=== PATIENT | female | born 1995 | race African-American/Black ===

== ENCOUNTER 2019-04-19 10:45 | Emergency (ER) | payer SELFPAY ==
[2019-04-19 12:55] LABS: Urine Blood NEGATIVE (NEG); Urine Glucose NEGATIVE (NEG); Urine Protein NEGATIVE (NEG); Urine Specific Gravity 1.025 (1.005-1.030)
--- NOTE | 2019-04-19 13:39 | RAD REPORT ---
EXAM DESCRIPTION: CT - Head Brain Wo Cont - 04/19/2019 1:32 pm CLINICAL HISTORY: Dizziness;Headache;Numbness COMPARISON: No comparisons TECHNIQUE: All CT scans are performed using dose optimization technique as appropriate and may inclu de automated exposure control or mA/KV adjustment according to patient size. FINDINGS: No intracranial hemorrhage, hydrocephalus or extra-axial fluid collection.No areas of brai n edema or evidence of midline shift. The paranasal sinuses and mastoids are clear. The calvarium is intact. IMPRESSION: No acute intracranial abnormality.
[2019-04-19] MEDS ORDERED: METOCLOPRAMIDE 10 MG/2mL INJ ONE (14:04)
[2019-04-19] MEDS ORDERED: DIPHENHYDRAMINE 50 MG/ML VIAL ONE (14:04)
[2019-04-19] MEDS ORDERED: NA CHLORIDE 0.9% 100 ML IV ONE (14:04)
[2019-04-19 14:10] LABS: Absolute Lymphocytes (CBC) 2.2 K/uL (0.7-4.9); Basophils % 0.4 % (0-1.3); Hematocrit 34.2 % (36.0-45.0); Lymphocytes % 44.1 % (15.3-44.8); MPV 8.4 fL (7.6-11.3); RBC Red Blood Cell Count 3.73 M/uL (3.86-4.86)
[2019-04-19 14:22] LABS: BUN Blood Urea Nitrogen 7 mg/dL (7-18); Bicarbonate 28 mmol/L (21-32); Glucose Level 87 mg/dL (74-106); Potassium 3.7 mmol/L (3.5-5.1); Sodium Level 138 mmol/L (136-145)
--- NOTE | 2019-04-19 14:55 | EDPHYS ---
Physician Documentation [facility] Name: Sivakumar Mayo Age: 23 yrs Sex: Female : 1995 Arrival Date: 04/19/2019 Time: 10:[address] Private MD: ED Physician Santiago Barbosa HPI: 04/19 14:09 This 23 yrs old Black Female presents to ER via Ambulatory with complaints of jr8 Dizziness, Headache, Nausea. 14:09 Onset: The symptoms/episode began/occurred acutely, today. Modifying factors: The jr8 symptoms are alleviated by nothing, the symptoms are aggravated by nothing. Associated signs and symptoms: The patient has no apparent associated signs or symptoms. Severity of symptoms: At their worst the symptoms were mild in the emergency department the symptoms are unchanged. Patient's baseline: Neuro: alert and fully oriented, Motor: no deficits, Ambulation: walks without assistance, Speech: normal. The patient has not experienced similar symptoms in the past. The patient has not recently seen a physician. Stated that her hands and feet are numb and tingling on/off. Has had headache and dizziness with nausea . 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 - Coronavirus screen:: The patient has NOT traveled to [place], [place], or [place] in the past 14 days. Proceed with normal triage process as indicated. - Social history:: Smoking status: Patient denies any tobacco usage or history of. - Ebola Screening: : Patient negative for fever greater than or equal to 101.5 degrees Fahrenheit, and additional compatible Ebola Virus Disease symptoms Patient denies exposure to infectious person Patient denies travel to an Ebola-affected area in the 21 days before illness onset No symptoms or risks identified at this time. ROS: 14:09 Eyes: Negative for injury, pain, redness, and discharge, ENT: Negative for injury, jr8 pain, and discharge, Neck: Negative for injury, pain, and swelling, Cardiovascular: Negative for chest pain, palpitations, and edema, Respiratory: Negative for shortness of breath, cough, wheezing, and pleuritic chest pain, Back: Negative for injury and pain, MS/Extremity: Negative for injury and deformity, Skin: Negative for injury, rash, and discoloration. 14:09 Abdomen/GI: Positive for nausea, Negative for abdominal pain, vomiting, diarrhea, constipation, abdominal cramps, abdominal distension. 14:09 Neuro: Positive for dizziness, headache, numbness, tingling. Exam: 14:09 Eyes: Pupils equal round and reactive to light, extra-ocular motions intact. Lids and jr8 lashes normal. Conjunctiva and sclera are non-icteric and not injected. Cornea within normal limits. Periorbital areas with no swelling, redness, or edema. ENT: Nares patent. No nasal discharge, no septal abnormalities noted. Tympanic membranes are normal and external auditory canals are clear. Oropharynx with no redness, swelling, or masses, exudates, or evidence of obstruction, uvula midline. Mucous membranes moist. Neck: Trachea midline, no thyromegaly or masses palpated, and no cervical lymphadenopathy. Supple, full range of motion without nuchal rigidity, or vertebral point tenderness. No Meningismus. Cardiovascular: Regular rate and rhythm with a normal S1 and S2. No gallops, murmurs, or rubs. Normal PMI, no JVD. No pulse deficits. Respiratory: Lungs have equal breath sounds bilaterally, clear to auscultation and percussion. No rales, rhonchi or wheezes noted. No increased work of breathing, no retractions or nasal flaring. Abdomen/GI: Soft, non-tender, with normal bowel sounds. No distension or tympany. No guarding or rebound. No evidence of tenderness throughout. Back: No spinal tenderness. No costovertebral tenderness. Full range of motion. Skin: Warm, dry with normal turgor. Normal color with no rashes, no lesions, and no evidence of cellulitis. MS/ Extremity: Pulses equal, no cyanosis. Neurovascular intact. Full, normal range of motion. Neuro: Awake and alert, GCS 15, oriented to person, place, time, and situation. Cranial nerves II-XII grossly intact. Motor strength 5/5 in all extremities. Sensory grossly intact. Cerebellar exam normal. Normal gait. Vital Signs: 11:01 BP 122 / 84; Pulse 74; Resp 16; Temp 98.7; Pulse Ox 100% on R/A; Weight 58.51 kg; iw Height 5 ft. 0 in. (152.40 cm); Pain 7/10; 12:31 BP 126 / 81; Pulse 86; Resp 15; Pulse Ox 100% on R/A; mh5 14:00 BP 129 / 77; Pulse 72; Resp 14; Temp 98.4; Pulse Ox 100% on R/A; Pain 4/10; ls4 15:14 BP 121 / 78; Pulse 74; Resp 14; Temp 98.3; Pulse Ox 100% on R/A; Pain 4/10; ls4 11:01 Body Mass Index 25.19 (58.51 kg, 152.40 cm) iw MDM: 12:52 Patient medically screened. [facility] 14:53 Data reviewed: vital signs, nurses notes, lab test result(s), radiologic studies, CT jr8 scan. Data interpreted: Pulse oximetry: on room air is 100 %. Interpretation: normal. Counseling: I had a detailed discussion with the patient and/or guardian regarding: the historical points, exam findings, and any diagnostic results supporting the discharge/admit diagnosis, lab results, radiology results, the need for outpatient follow up, a family practitioner, to return to the emergency department if symptoms worsen or persist or if there are any questions or concerns that arise at home. 04/19 12:25 Order name: Urine Dipstick--Ancillary (enter results); Complete Time: 12:56 04/19 12:25 Order name: Urine --Ancillary (enter results); Complete Time: 12:56 04/19 13:08 Order name: CT Head Brain wo Cont; Complete Time: 13:46 04/19 13:08 Order name: CBC with Diff [facility] 04/19 13:08 Order name: Basic Metabolic Panel; Complete Time: 14:53 04/19 14:17 Order name: Manual Differential EDMS 04/19 13:08 Order name: IV; Complete Time: 14:41 [facility] 04/19 13:43 Order name: Labs - recollect needed; Complete Time: 13:59 bd Administered Medications: 13:50 Drug: Reglan 10 mg Route: IVP; Site: left antecubital; ls4 14:30 Follow up: Response: No adverse reaction; Marked relief of symptoms ls4 13:50 Drug: Benadryl 12.5 mg Route: IVP; Site: left subclavian; ls4 14:30 Follow up: Response: No adverse reaction; Pain is decreased ls4 Disposition: 16:46 Co-signature as Attending Physician, Santiago Barbosa MD I agree with the assessment and baylee plan of care. Disposition: 04/19/19 14:54 Discharged to Home. Impression: Migraine, Paresthesia of skin. - Condition is Stable. - Discharge Instructions: Migraine Headache, Paresthesia. - Medication Reconciliation Form, Thank You Letter, Antibiotic Education, Prescription Opioid Use form. - Follow up: Jeyson Krishnan MD; When: 5 - 6 days; Reason: Recheck today's complaints, Continuance of care, Re-evaluation by your physician. - Problem is new. - Symptoms have improved. Signatures: Dispatcher [employer] EDMS Lissy Ferreira Corey, MD MD cha Williams, Irene RN Larry Fuchs PA PA jr8 Reyna Davis RN RN ls4 Corrections: (The following items were deleted from the chart) 15:24 14:54 04/19/2019 14:54 Discharged to Home. Impression: Migraine; Paresthesia of skin. ls4 Condition is Stable. Forms are Medication Reconciliation Form, Thank You Letter, Antibiotic Education, Prescription Opioid Use. Follow up: Jeyson Krishnan; When: 5 - 6 days; Reason: Recheck today's complaints, Continuance of care, Re-evaluation by your physician. Problem is new. Symptoms have improved. jr8
--- NOTE | 2019-04-19 14:55 | ER ---
Nurse's Notes [facility] Name: Sivakumar Mayo Age: 23 yrs Sex: Female : 1995 Arrival Date: 04/19/2019 Time: 10:[address] Private MD: Diagnosis: Migraine;Paresthesia of skin Presentation: 04/19 10:58 Presenting complaint: Patient states: feels weak, nauseated, feels like she's going to pass out, headache X 10 days, denies fever but has been sweating. Transition of care: patient was not received from another setting of care. Onset of symptoms was April 09, 2019. Risk Assessment: Do you want to hurt yourself or someone else? Patient reports no desire to harm self or others. Initial Sepsis Screen: Does the patient meet any 2 criteria? No. Patient's initial sepsis screen is negative. Does the patient have a suspected source of infection? No. Patient's initial sepsis screen is negative. Care prior to arrival: None. 10:58 Method Of Arrival: Ambulatory 10:58 Acuity: SIMONE 3 Triage Assessment: 12:45 Headache History: The patient has had previous headaches and this one is similar to iw previous episodes. General: Appears in no apparent distress. General: Behavior is calm, cooperative. Pain: Also complains of no other associated symptoms. Pain: Pain currently is 8 out of 10 on a pain scale. 12:45 Pain: Pain began 1 day ago. 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 - Coronavirus screen:: The patient has NOT traveled to [place], [place], or [place] in the past 14 days. Proceed with normal triage process as indicated. - Social history:: Smoking status: Patient denies any tobacco usage or history of. - Ebola Screening: : Patient negative for fever greater than or equal to 101.5 degrees Fahrenheit, and additional compatible Ebola Virus Disease symptoms Patient denies exposure to infectious person Patient denies travel to an Ebola-affected area in the 21 days before illness onset No symptoms or risks identified at this time. Screenin:40 Abuse screen: Denies threats or abuse. Denies injuries from another. Nutritional iw screening: No deficits noted. Tuberculosis screening: No symptoms or risk factors identified. Fall Risk None identified. Assessment: 12:39 General: Appears in no apparent distress. Behavior is calm, cooperative. Pain: iw Complains of pain in head. Neuro: Level of Consciousness is awake, alert, obeys commands, Oriented to person, place, time, situation. Cardiovascular: Patient's skin is warm and dry. Respiratory: Airway is patent Respiratory effort is even, unlabored. Derm: Skin is intact, is healthy with good turgor. Musculoskeletal: Range of motion: intact in all extremities. Vital Signs: 11:01 BP 122 / 84; Pulse 74; Resp 16; Temp 98.7; Pulse Ox 100% on R/A; Weight 58.51 kg; iw Height 5 ft. 0 in. (152.40 cm); Pain 7/10; 12:31 BP 126 / 81; Pulse 86; Resp 15; Pulse Ox 100% on R/A; mh5 14:00 BP 129 / 77; Pulse 72; Resp 14; Temp 98.4; Pulse Ox 100% on R/A; Pain 4/10; ls4 15:14 BP 121 / 78; Pulse 74; Resp 14; Temp 98.3; Pulse Ox 100% on R/A; Pain 4/10; ls4 11:01 Body Mass Index 25.19 (58.51 kg, 152.40 cm) ED Course: 10:49 Patient arrived in ED. mr 10:59 Triage completed. iw 11:01 Arm band placed on. iw 12:15 Larry Cervantes PA is PHCP. jr8 12:15 Santiago Barbosa MD is Attending Physician. jr8 12:27 Urine collected: clean catch specimen, clear. [facility] 12:30 Patient has correct armband on for positive identification. Bed in low position. Call [facility] light in reach. Pulse ox on. NIBP on. 12:30 Urine --Ancillary (enter results) Sent. [facility] 12:30 Urine Dipstick--Ancillary (enter results) Sent. [facility] 13:17 Alida Castellon, TONY is Primary Nurse. iw 13:18 Initial lab(s) drawn, by me, sent to lab. Inserted saline lock: 18 gauge in left tm3 antecubital area, using aseptic technique. 13:32 CT Head Brain wo Cont In Process Unspecified. EDMS 14:54 Jeyson Krishnan MD is Referral Physician. jr8 15:23 No provider procedures requiring assistance completed. IV discontinued, intact, iw bleeding controlled, No redness/swelling at site. Pressure dressing applied. Administered Medications: 13:50 Drug: Reglan 10 mg Route: IVP; Site: left antecubital; ls4 14:30 Follow up: Response: No adverse reaction; Marked relief of symptoms ls4 13:50 Drug: Benadryl 12.5 mg Route: IVP; Site: left subclavian; ls4 14:30 Follow up: Response: No adverse reaction; Pain is decreased ls4 Outcome: 14:54 Discharge ordered by . jr8 15:23 Discharged to home ambulatory. iw 15:23 Condition: good 15:23 Discharge instructions given to patient, Instructed on discharge instructions, follow up and referral plans. Demonstrated understanding of instructions, follow-up care. 15:24 Patient left the ED. ls4 Signatures: Dispatcher [employer] EDMS Tal Khan Mary mr Alida Castellon, RN RN Larry Cervantes PA PA jr8 Anuja Curtis Reyna Gonzalez RN RN ls4
[2019-04-19 15:34] VITALS: O2SAT 100
[2019-04-19 15:36] LABS: Anisocytosis 1+; Blood Morphology Comment NOTED (NOT SEEN); Platelet Estimate ADEQ; Poikilocytosis 1+
[2019-04-19 15:38] VITALS: BP 121/78; TEMP 98.3
== END 2019-04-19 15:24 | disposition home or self-care (01) ==
LOC: ER 10:45
DX: G43.909 Migraine, unspecified, not intractable, without status migrainosus (principal); R20.2 Paresthesia of skin
CPT/HCPCS: 36415; 70450; 80048; 81003; 81025; 85025; 96374; 96375; 99284; J1200; J2765

== ENCOUNTER 2019-06-13 11:14 | Emergency (ER) | payer OTHER, SELFPAY ==
--- NOTE | 2019-06-13 12:18 | RAD REPORT ---
EXAM DESCRIPTION: Karishma Single View06/13/2019 12:13 pm CLINICAL HISTORY: Cough COMPARISON: none FINDINGS: The lungs appear clear of acute infiltrate. The heart is normal size IMPRESSION: No acute abnormalities displayed
--- NOTE | 2019-06-13 12:20 | ER ---
Nurse's Notes [facility] Name: Sivakumar Mayo Age: 24 yrs Sex: Female : 1995 Arrival Date: 06/13/2019 Time: 11:19 Bed 14 Private MD: Diagnosis: Cough;Acute upper respiratory infection, unspecified Presentation: 06/12 11:29 Chief complaint: Patient states: Cough, congestion, chills, body aches for about a ca1 week. Reports diarrhea. Denies N/V. Coronavirus screen: Patient reports a subjective fever or greater than 100.4F, or cough, or shortness of breath, or difficulty breathing. Patient denies travel on a cruise ship or to a country the [facility] currently lists as an affected area. Patient denies contact with known and/or suspected case of COVID-19. Ebola Screen: Patient negative for fever greater than or equal to 101.5 degrees Fahrenheit, and additional compatible Ebola Virus Disease symptoms Patient denies exposure to infectious person. Patient denies travel to an Ebola-affected area in the 21 days before illness onset. No symptoms or risks identified at this time. Initial Sepsis Screen: Does the patient meet any 2 criteria? No. Patient's initial sepsis screen is negative. Does the patient have a suspected source of infection? No. Patient's initial sepsis screen is negative. Risk Assessment: Do you want to hurt yourself or someone else? Patient reports no desire to harm self or others. Onset of symptoms was June 13, 2019. 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 - Social history:: Smoking status: Patient denies any tobacco usage or history of. - Family history:: not pertinent. - Hospitalizations: : No recent hospitalization is reported. Screenin:47 Abuse screen: Denies threats or abuse. Denies injuries from another. Nutritional ph screening: No deficits noted. Tuberculosis screening: No symptoms or risk factors identified. Fall Risk None identified. Assessment: 12:45 General: Appears in no apparent distress. comfortable, slender, well groomed, Behavior ph is calm, cooperative, appropriate for age, Reports chills for >3 days. Pain: Complains of pain in "body aches". Neuro: Level of Consciousness is awake, alert, obeys commands, Oriented to person, place, time, situation. Cardiovascular: Capillary refill < 3 seconds in bilateral fingers Patient's skin is warm and dry. Respiratory: Reports shortness of breath on exertion cough that is Airway is patent Respiratory effort is even, unlabored, Breath sounds are clear bilaterally. GI: Reports diarrhea, Patient currently denies abdominal pain, nausea, vomiting. Derm: Skin is intact, is healthy with good turgor, Skin is pink, warm \\T\\ dry. Musculoskeletal: Circulation, motion, and sensation intact. Range of motion: intact in all extremities. Vital Signs: 11:29 BP 112 / 72; Pulse 84; Resp 17 S; Temp 98.1(TE); Pulse Ox 100% on R/A; Weight 58.97 kg ca1 (R); Height 5 ft. (152.40 cm) (R); Pain 7/10; 12:51 BP 118 / 78; Pulse 81; Resp 18; Temp 97.9; Pulse Ox 99% on R/A; ph 11:29 Body Mass Index 25.39 (58.97 kg, 152.40 cm) ca1 ED Course: 11:19 Patient arrived in ED. mr 11:31 Triage completed. ca1 11:32 Arm band placed on left wrist. ca1 11:34 Lee Galvan MD is Attending Physician. rn 11:37 Ana Dawkins RN is Primary Nurse. ph 11:50 Flu and/or RSV swab sent to lab. Strep swab sent to lab. X-ray(s) taken. Patient jp3 maintains SpO2 saturation greater than 95% on room air. 11:51 Verbal reassurance given. jp3 11:51 Strep Sent. jp3 11:51 Flu Sent. jp3 12:14 XRAY Chest (1 view) In Process Unspecified. EDMS 12:48 Patient has correct armband on for positive identification. Bed in low position. Call ph light in reach. Side rails up X 1. Pulse ox on. NIBP on. Door closed. Noise minimized. 12:49 No provider procedures requiring assistance completed. Patient did not have IV access ph during this emergency room visit. Administered Medications: No medications were administered Outcome: 12:18 Discharge ordered by . rn 12:50 Discharged to home ambulatory. ph 12:50 Condition: good 12:50 Discharge instructions given to patient, Instructed on discharge instructions, follow up and referral plans. medication usage, Demonstrated understanding of instructions, follow-up care. 12:52 Patient left the ED. ph Signatures: Dispatcher [employer] PRIYANKAEulalia TorresLee MD MD rn Ana Dawkins RN RN ph Ricky Quiros 3 Emma Barker RN RN ca1 Corrections: (The following items were deleted from the chart) 11:31 11:29 Chief complaint: Patient states: Cough, congestion, chills for about a week. ca1 Reports diarrhea. Denies N/V ca1
--- NOTE | 2019-06-13 12:21 | EDPHYS ---
Physician Documentation [facility] Name: Sivakumar Mayo Age: 24 yrs Sex: Female : 1995 Arrival Date: 06/13/2019 Time: 11:19 Bed 14 Private MD: ED Physician Lee Galvan HPI: 06/12 11:41 This 24 yrs old Black Female presents to ER via Ambulatory with complaints of Cough, rn Breathing Difficulty, Fatigue. 11:41 The patient or guardian reports cough, that is intermittent, described as mild, with no rn sputum. Onset: The symptoms/episode began/occurred 1 week(s) ago. Severity of symptoms: At their worst the symptoms were mild, in the emergency department the symptoms are unchanged. Modifying factors: The symptoms are alleviated by nothing, the symptoms are aggravated by nothing. Associated signs and symptoms: Pertinent positives: rhinorrhea, sore throat, Pertinent negatives: fever. The patient has experienced similar episodes in the past. Reports cough, congestion, sore throat, for 1 week, non-productive, reports not better or worse, no hemoptysis. . 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 - Social history:: Smoking status: Patient denies any tobacco usage or history of. - Family history:: not pertinent. - Hospitalizations: : No recent hospitalization is reported. ROS: 11:41 Constitutional: Negative for fever, chills, and weight loss, Eyes: Negative for injury, rn pain, redness, and discharge, Neck: Negative for injury, pain, and swelling, Cardiovascular: Negative for chest pain, palpitations, and edema, Respiratory: + cough Abdomen/GI: Negative for abdominal pain, nausea, vomiting, + diarrhea MS/Extremity: Negative for injury and deformity, Skin: Negative for injury, rash, and discoloration, Neuro: Negative for headache, numbness, tingling, and seizure. Exam: 11:41 Constitutional: This is a well developed, well nourished patient who is awake, alert, rn and in no acute distress. Head/Face: Normocephalic, atraumatic. Eyes: Pupils equal round and reactive to light, extra-ocular motions intact. Lids and lashes normal. Conjunctiva and sclera are non-icteric and not injected. Cornea within normal limits. Periorbital areas with no swelling, redness, or edema. Neck: + non-tender cervical LAD Cardiovascular: Regular rate and rhythm. No pulse deficits. Respiratory: Lungs have equal breath sounds bilaterally, clear to auscultation. No increased work of breathing, no retractions or nasal flaring. MS/ Extremity: Pulses equal, no cyanosis. Neurovascular intact. Full, normal range of motion. Equal circumference. Neuro: Awake and alert, GCS 15 Vital Signs: 11:29 BP 112 / 72; Pulse 84; Resp 17 S; Temp 98.1(TE); Pulse Ox 100% on R/A; Weight 58.97 kg ca1 (R); Height 5 ft. (152.40 cm) (R); Pain 7/10; 12:51 BP 118 / 78; Pulse 81; Resp 18; Temp 97.9; Pulse Ox 99% on R/A; ph 11:29 Body Mass Index 25.39 (58.97 kg, 152.40 cm) ca1 MDM: 11:34 Patient medically screened. rn 12:16 Differential Diagnosis: Bronchitis Influenza Upper Respiratory Infection Viral Syndrome rn Pneumonia. Data reviewed: vital signs, nurses notes, lab test result(s), radiologic studies, plain films, and as a result, I will discharge patient. Test interpretation: by ED physician or midlevel provider: plain radiologic studies, CXR neg for acute pneumonia or infiltrate. Counseling: I had a detailed discussion with the patient and/or guardian regarding: the historical points, exam findings, and any diagnostic results supporting the discharge/admit diagnosis, lab results, radiology results, the need for outpatient follow up, to return to the emergency department if symptoms worsen or persist or if there are any questions or concerns that arise at home. Special discussion: I discussed with the patient/guardian in detail that at this point there is no indication for admission to the hospital. It is understood, however, that if the symptoms persist or worsen the patient needs to return immediately for re-evaluation. ED course: No indication for abx at this point, flu/strep neg, no oxygen requirement. . 06/12 11:40 Order name: Flu; Complete Time: 12:16 rn 06/12 11:40 Order name: Strep; Complete Time: 12:16 rn 06/12 11:40 Order name: XRAY Chest (1 view); Complete Time: 12:41 rn 06/12 12:10 Order name: Throat Culture EDMS Administered Medications: No medications were administered Disposition: 06/13/19 12:18 Discharged to Home. Impression: Cough, Acute upper respiratory infection, unspecified. - Condition is Stable. - Discharge Instructions: Upper Respiratory Infection, Adult, Viral Respiratory Infection, Cough, Adult. - Medication Reconciliation Form, Thank You Letter, Antibiotic Education, Prescription Opioid Use, Work release form form. - Follow up: Private Physician; When: As needed; Reason: Recheck today's complaints, Re-evaluation by your physician. - Problem is new. - Symptoms are unchanged. Signatures: Dispatcher [employer] EDMS Lee Galvan MD MD rn Hall, Patricia, RN RN Emma Barker RN RN [facility] Corrections: (The following items were deleted from the chart) 12:18 12:18 06/13/2019 12:18 Discharged to Home. Impression: Cough. Condition is Stable. rn Forms are Medication Reconciliation Form, Thank You Letter, Antibiotic Education, Prescription Opioid Use. Follow up: Private Physician; When: As needed; Reason: Recheck today's complaints, Re-evaluation by your physician. Problem is new. Symptoms are unchanged. rn 12:52 12:18 06/13/2019 12:18 Discharged to Home. Impression: Cough; Acute upper respiratory ph infection, unspecified. Condition is Stable. Forms are Medication Reconciliation Form, Thank You Letter, Antibiotic Education, Prescription Opioid Use. Follow up: Private Physician; When: As needed; Reason: Recheck today's complaints, Re-evaluation by your physician. Problem is new. Symptoms are unchanged. rn
[2019-06-13 13:01] VITALS: BP 118/78; TEMP 97.9; O2SAT 99
== END 2019-06-13 12:52 | disposition home or self-care (01) ==
LOC: ER 11:14
DX: J06.9 Acute upper respiratory infection, unspecified (principal)
CPT/HCPCS: 71045; 87070; 87081; 87804; 99284

== ENCOUNTER 2019-06-29 15:24 | Emergency (ER) | payer OTHER ==
[2019-06-29 17:02] VITALS: BP 131/75; TEMP 99.7; O2SAT 98
== END 2019-06-29 16:46 | disposition home or self-care (01) ==
LOC: ER 15:24
DX: H66.91 Otitis media, unspecified, right ear (principal); J02.9 Acute pharyngitis, unspecified
CPT/HCPCS: 87070; 87081; 99283

== ENCOUNTER 2019-07-02 18:27 | Emergency (ER) | payer OTHER ==
[2019-07-02] MEDS ORDERED: dexAMETHasone 10 MG/ML VIAL ONE (20:08)
[2019-07-02] MEDS ORDERED: IBUPROFEN 200 MG TAB PO ONE (20:09)
[2019-07-02] MEDS ORDERED: ONDANSETRON 4 MG/2 ML VIAL ONE (20:09)
[2019-07-02] MEDS ORDERED: CEFTRIAXONE/SWI 1gm 1 GM/10 ML SYR ONE (20:09)
[2019-07-02] MEDS ORDERED: NA CHLORIDE 0.9% 1,000 ML ONE (20:09)
[2019-07-02] MEDS ORDERED: IBUPROFEN 400 MG TAB ONE (20:09)
[2019-07-02] MEDS ORDERED: CLINDAMYCIN 900MG/D5W 900 MG/50 ML IVPB IV ONE (20:09)
[2019-07-02 20:15] LABS: Urine Blood NEGATIVE (NEG); Urine Glucose NEGATIVE (NEG); Urine Protein 2+ (NEG); Urine Specific Gravity 1.025 (1.005-1.030)
[2019-07-02 20:25] LABS: Absolute Lymphocytes (CBC) 1.3 K/uL (0.7-4.9); Basophils % 0.1 % (0-1.3); Hematocrit 35.3 % (36.0-45.0); MPV 8.7 fL (7.6-11.3); RBC Red Blood Cell Count 3.82 M/uL (3.86-4.86)
[2019-07-02 20:27] LABS: ALT/SGPT 12 U/L (12-78); AST/SGOT 16 U/L (15-37); Albumin 4.1 g/dL (3.4-5.0); Alkaline Phosphatase 68 U/L (45-117); BUN Blood Urea Nitrogen 5 mg/dL (7-18); Bicarbonate 27 mmol/L (21-32); Bilirubin Total 0.6 mg/dL (0.2-1.0); Glucose Level 88 mg/dL (74-106); Potassium 3.6 mmol/L (3.5-5.1); Protein, Total 8.8 g/dL (6.4-8.2); Sodium Level 143 mmol/L (136-145)
[2019-07-02] MEDS ORDERED: MORPHINE 2 MG/ML SYR ONE (20:54)
--- NOTE | 2019-07-02 21:08 | RAD REPORT ---
EXAM DESCRIPTION: CT - Soft Tissue Neck W/Contr - 07/02/2019 8:57 pm CLINICAL HISTORY: Fever;Pain COMPARISON: No comparisons TECHNIQUE: During dynamic enhancement using 100 milliliters nonionic IV contrast, axial 5 millimeter thick images of the neck were obtained. All CT scans are performed using dose optimization technique as appropriate and may include automated exposure control or mA/KV adjustment according to patient size. FINDINGS: Intracranial portion the examination is unremarkable. No globe or orbital content abnormal ity seen. Mastoid air cells and middle ears are clear. No acute paranasal sinus finding. No acute bon e findings identifiable. Right-side tonsil is enlarged. There is a 2.6 centimeter x 1.6 centimeter by 1.8 centimeter right per itonsillar abscess. Surrounding soft tissues are edematous. There is partial narrowing of the airway. Right-side soft palate is edematous as well. No vocal cord abnormality. Epiglottis is minimally thic kened along the right lateral margin. Right-sided cervical lymph nodes are present up to 2 cm in size. No necrotic lymph node. No vascular abnormality. Parotid, submandibular and thyroid gland tissue show no acute findings. IMPRESSION: Enlarged right tonsil with 2.6 centimeter x 1.6 centimeter x 1.8 centimeter peritonsilla r abscess. Right cervical lymph nodes up to 2 cm in size. No abscessed or necrotic lymph node.
--- NOTE | 2019-07-02 21:20 | ER ---
Nurse's Notes [facility] Name: Sivakumar Mayo Age: 24 yrs Sex: Female : 1995 Arrival Date: 07/02/2019 Time: 18:32 Bed 14 Private MD: Diagnosis: Peritonsillar abscess-right, 2.6x1.6x1.8 cm;Fever, unspecified Presentation: 07/01 18:38 Chief complaint: Patient states: Worsening pain to right ear and right side of neck ll1 feels swollen. On amoxicillin, no relief. States its way worse now. Fever 102.3. Coronavirus screen: Patient denies a cough. Patient denies shortness of breath or difficulty breathing. Patient reports a measured and/or subjective temperature greater than 100.4F. Patient denies travel on a cruise ship or to a country the [facility] currently lists as an affected area. Patient denies contact with known and/or suspected case of COVID-19. Ebola Screen: Patient denies travel to an Ebola-affected area in the 21 days before illness onset. Initial Sepsis Screen: Does the patient meet any 2 criteria? Temp <36.0*C (96.8*F)) or > 38.3*C (100.9*F). HR > 90 bpm. Risk Assessment: Do you want to hurt yourself or someone else? Patient reports no desire to harm self or others. Onset of symptoms was June 28, 2019. 18:38 Method Of Arrival: Ambulatory ll1 18:38 Acuity: SIMONE 3 ll1 21:05 Initial Sepsis Screen: Does the patient have a suspected source of infection? Yes: vc Other: sore throat. Triage Assessment: 19:30 General: Appears in no apparent distress. uncomfortable, ill, Behavior is calm, vc cooperative, appropriate for age. Pain: Complains of pain in right aspect of posterior pharynx Pain currently is 9 out of 10 on a pain scale. EENT: Throat is reddened has patchy exudate has enlarged tonsils on right Reports pain to the right side of the throat. Neuro: Level of Consciousness is awake, alert, obeys commands, Oriented to person, place, time. Cardiovascular: Patient's skin is warm and dry. Respiratory: Airway is patent Respiratory effort is even, unlabored, Respiratory pattern is regular, symmetrical. GI: No signs and/or symptoms were reported involving the gastrointestinal system. : No signs and/or symptoms were reported regarding the genitourinary system. Derm: Skin temperature is warm. Musculoskeletal: Circulation, motion, and sensation intact. Range of motion: intact in all extremities. 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 - Social history:: Smoking status: Patient denies any tobacco usage or history of. Patient/guardian denies using alcohol, street drugs, tobacco products. Screenin:01 Abuse screen: Denies threats or abuse. Nutritional screening: No deficits noted. vc Tuberculosis screening: No symptoms or risk factors identified. Fall Risk None identified. Assessment: 19:30 Reassessment: See triage assessment. vc 20:30 Reassessment: Patient appears in no apparent distress at this time. No changes from vc previously documented assessment. Patient states symptoms have not improved. Neuro: Level of Consciousness is alert, obeys commands. 21:30 Reassessment: Patient appears in no apparent distress at this time. No changes from vc previously documented assessment. Patient and/or family updated on plan of care and expected duration. Pain level reassessed. 22:21 Reassessment: Patient appears in no apparent distress at this time. No changes from vc previously documented assessment. Patient denies pain at this time. Patient states feeling better. 23:00 Reassessment: Patient appears in no apparent distress at this time. No changes from vc previously documented assessment. Patient is alert, oriented x 3, equal unlabored respirations, skin warm/dry/pink. Patient states feeling better. Patient states symptoms have improved. 23:17 Reassessment: EMS present to transfer patient. Neuro: Level of Consciousness is vc obeys commands, Oriented to person, place, time, situation. Respiratory: Airway is patent Respiratory effort is even, unlabored, Respiratory pattern is regular, symmetrical. Vital Signs: 18:38 BP 155 / 80; Pulse 112; Resp 18; Temp 102.3; Pulse Ox 100% ; Weight 58.97 kg; Height 5 ll1 ft. (152.40 cm); Pain 10/10; 20:30 Temp 102.4(O); vc 21:38 BP 112 / 61; Pulse 101; Resp 17; Temp 99.9(O); Pulse Ox 100% on R/A; vc 22:30 BP 100 / 63; Pulse 93; Temp 97(TE); Pulse Ox 98% on R/A; vc 18:38 Body Mass Index 25.39 (58.97 kg, 152.40 cm) ll1 ED Course: 18:32 Patient arrived in ED. am2 18:41 Triage completed. ll1 18:42 Arm band placed on Patient placed in an exam room, on a stretcher. 1 18:53 Rivka Anna, RN is Primary Nurse. 19:13 Santiago Barbosa MD is Attending Physician. [facility] 20:57 CT Soft Tissue Neck W/contr In Process Unspecified. EDMS 21:00 CT completed. Patient tolerated procedure well. Patient moved back from CT. md1 21:05 Patient has correct armband on for positive identification. Bed in low position. Pulse vc ox on. NIBP on. 23:18 No provider procedures requiring assistance completed. Patient transferred, IV remains vc in place. Administered Medications: 20:33 Drug: Zofran (Ondansetron) 4 mg Route: IVP; Site: left antecubital; 21:39 Follow up: Response: No adverse reaction vc 20:34 Drug: Motrin 600 mg Route: PO; 21:40 Follow up: Response: No adverse reaction vc 20:34 Drug: Decadron - Dexamethasone 10 mg Route: IVP; Site: left antecubital; 21:40 Follow up: Response: No adverse reaction vc 20:35 Drug: Rocephin 1 grams Route: IV; Rate: per protocol; Site: left antecubital; 20:38 Follow up: IV Status: Completed infusion; IV Intake: 10ml vc 21:41 Follow up: IV Intake: 10ml vc 20:35 Drug: Clindamycin 900 mg Route: IVPB; Infused Over: 30 mins; Site: left antecubital; 21:40 Follow up: IV Status: Completed infusion; IV Intake: 50ml vc 20:36 Drug: NS 0.9% 1000 ml Route: IV; Rate: 1 bolus; Site: left antecubital; 21:36 Follow up: IV Status: Completed infusion; IV Intake: 1000ml vc 20:45 Drug: morphine 2 mg Route: IVP; Site: left antecubital; vc 21:40 Follow up: Response: No adverse reaction vc Intake: 20:38 IV: 10ml; Total: 10ml. vc 21:36 IV: 1000ml; Total: 1010ml. vc 21:40 IV: 50ml; Total: 1060ml. vc 21:41 IV: 10ml; Total: 1070ml. vc Outcome: 21:19 ER care complete, transfer ordered by . baylee 23:19 Transferred by ground EMS to [facility], Transfer form completed. vc 23:19 Condition: improved 23:19 Instructed on the need for transfer. vc 23:20 Patient left the ED. vc Signatures: Dispatcher [employer] EDMS Santiago Barbosa MD MD cha Moreno, Amanda am2 Di Santo, Mikaela md1 Calcote, Vanessa, RN RN Rivka Anna RN RN ah Lewis, Lynsay, RN RN ll1 Corrections: (The following items were deleted from the chart) 21:11 20:30 Reassessment: Patient appears in no apparent distress at this time. No changes vc from previously documented assessment. vc
--- NOTE | 2019-07-02 21:20 | EDPHYS ---
Physician Documentation [facility] Name: Sivakumar Mayo Age: 24 yrs Sex: Female : 1995 Arrival Date: 07/02/2019 Time: 18:32 Bed 14 Private MD: PRIYANKA Physician Santiago Barbosa HPI: 07/01 19:42 This 24 yrs old Black Female presents to ER via Ambulatory with complaints of Neck baylee Swelling, Sore Throat, Difficulty Swallowing, worsening of symptoms. 19:42 The patient or guardian complains of decreased range of motion, pain, swelling, baylee tenderness. The symptoms are located on the right ear and right jaw. 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 - Social history:: Smoking status: Patient denies any tobacco usage or history of. Patient/guardian denies using alcohol, street drugs, tobacco products. ROS: 19:43 Eyes: Negative for injury, pain, redness, and discharge, Neck: Negative for injury, baylee pain, and swelling, Cardiovascular: Negative for chest pain, palpitations, and edema, Respiratory: Negative for shortness of breath, cough, wheezing, and pleuritic chest pain, Abdomen/GI: Negative for abdominal pain, nausea, vomiting, diarrhea, and constipation, Back: Negative for injury and pain, : Negative for injury, bleeding, discharge, and swelling, MS/Extremity: Negative for injury and deformity, Skin: Negative for injury, rash, and discoloration, Neuro: Negative for headache, weakness, numbness, tingling, and seizure, Psych: Negative for depression, anxiety, suicide ideation, homicidal ideation, and hallucinations, Allergy/Immunology: Negative for hives, rash, and allergies, Endocrine: Negative for neck swelling, polydipsia, polyuria, polyphagia, and marked weight changes, Hematologic/Lymphatic: Negative for swollen nodes, abnormal bleeding, and unusual bruising. 19:43 ENT: Positive for difficulty swallowing, sore throat. Exam: 19:43 Head/Face: Normocephalic, atraumatic. Eyes: Pupils equal round and reactive to light, baylee extra-ocular motions intact. Lids and lashes normal. Conjunctiva and sclera are non-icteric and not injected. Cornea within normal limits. Periorbital areas with no swelling, redness, or edema. Chest/axilla: Normal chest wall appearance and motion. Nontender with no deformity. No lesions are appreciated. Cardiovascular: Regular rate and rhythm with a normal S1 and S2. No gallops, murmurs, or rubs. Normal PMI, no JVD. No pulse deficits. Respiratory: Lungs have equal breath sounds bilaterally, clear to auscultation and percussion. No rales, rhonchi or wheezes noted. No increased work of breathing, no retractions or nasal flaring. Abdomen/GI: Soft, non-tender, with normal bowel sounds. No distension or tympany. No guarding or rebound. No evidence of tenderness throughout. Back: No spinal tenderness. No costovertebral tenderness. Full range of motion. Skin: Warm, dry with normal turgor. Normal color with no rashes, no lesions, and no evidence of cellulitis. MS/ Extremity: Pulses equal, no cyanosis. Neurovascular intact. Full, normal range of motion. Neuro: Awake and alert, GCS 15, oriented to person, place, time, and situation. Cranial nerves II-XII grossly intact. Motor strength 5/5 in all extremities. Sensory grossly intact. Cerebellar exam normal. Normal gait. Psych: Awake, alert, with orientation to person, place and time. Behavior, mood, and affect are within normal limits. 19:43 Constitutional: The patient appears febrile. 19:43 ENT: Posterior pharynx: Tonsils: enlarged on the right, with exudate, Uvula: edematous, erythema, swelling, that is moderate, erythema, that is mild, exudate, that is mild, peritonsillar mass, is noted on the right, pooling of secretions, is not appreciated. 19:43 Neck: External neck: swelling, tenderness, of the right submandibular area and right sternocleidomastoid, ROM/movement: is normal, no acute changes. Vital Signs: 18:38 BP 155 / 80; Pulse 112; Resp 18; Temp 102.3; Pulse Ox 100% ; Weight 58.97 kg; Height 5 ll1 ft. (152.40 cm); Pain 10/10; 20:30 Temp 102.4(O); vc 21:38 BP 112 / 61; Pulse 101; Resp 17; Temp 99.9(O); Pulse Ox 100% on R/A; vc 22:30 BP 100 / 63; Pulse 93; Temp 97(TE); Pulse Ox 98% on R/A; vc 18:38 Body Mass Index 25.39 (58.97 kg, 152.40 cm) ll1 MDM: 19:14 Patient medically screened. [facility] 19:45 Data reviewed: vital signs, nurses notes, lab test result(s), radiologic studies, CT [facility] scan. 07/01 19:42 Order name: CBC with Diff; Complete Time: 20:[address] [facility] 07/01 19:42 Order name: Comprehensive Metabolic Panel; Complete Time: 20:[address] [facility] 07/01 19:42 Order name: Blood Culture Adult (2) [facility] 07/01 19:42 Order name: Urine Culture [facility] 07/01 20:06 Order name: Urine Dipstick--Ancillary (enter results); Complete Time: 20:39 [facility] 07/01 20:06 Order name: Urine --Ancillary (enter results); Complete Time: 20:39 [facility] 07/01 19:46 Order name: CT Soft Tissue Neck W/contr; Complete Time: 21:[address] [facility] 07/01 19:42 Order name: Urine Dipstick-Ancillary (obtain specimen); Complete Time: 20:[address] [facility] 07/01 19:42 Order name: Urine Test (obtain specimen); Complete Time: 20:[address] [facility] 07/01 21:22 Order name: NPO; Complete Time: 21:[address] [facility] Administered Medications: 20:33 Drug: Zofran (Ondansetron) 4 mg Route: IVP; Site: left antecubital; 21:39 Follow up: Response: No adverse reaction vc 20:34 Drug: Motrin 600 mg Route: PO; ah 21:40 Follow up: Response: No adverse reaction vc 20:34 Drug: Decadron - Dexamethasone 10 mg Route: IVP; Site: left antecubital; 21:40 Follow up: Response: No adverse reaction vc 20:35 Drug: Rocephin 1 grams Route: IV; Rate: per protocol; Site: left antecubital; 20:38 Follow up: IV Status: Completed infusion; IV Intake: 10ml vc 21:41 Follow up: IV Intake: 10ml vc 20:35 Drug: Clindamycin 900 mg Route: IVPB; Infused Over: 30 mins; Site: left antecubital; 21:40 Follow up: IV Status: Completed infusion; IV Intake: 50ml vc 20:36 Drug: NS 0.9% 1000 ml Route: IV; Rate: 1 bolus; Site: left antecubital; 21:36 Follow up: IV Status: Completed infusion; IV Intake: 1000ml vc 20:45 Drug: morphine 2 mg Route: IVP; Site: left antecubital; 21:40 Follow up: Response: No adverse reaction vc Disposition: 07/02/19 21:19 Transfer ordered to [facility]. Diagnosis are Peritonsillar abscess - right, 2.6x1.6x1.8 cm, Fever, unspecified. - Reason for transfer: Higher level of care. - Accepting physician is to [facility]. - Condition is Fair. - Problem is new. - Symptoms have improved. Signatures: Dispatcher [employer] EDSantiago Jesus MD MD cha Calcote, Vanessa, RN RN Rivka Santos RN RN Chayo Lopez RN RN ll1 Corrections: (The following items were deleted from the chart) 23:20 21:19 07/02/2019 21:19 Transfer ordered to [facility]. vc Diagnosis is Peritonsillar abscess - right, 2.6x1.6x1.8 cm; Fever, unspecified. Reason for transfer: Higher level of care. Accepting physician is to [facility]. Condition is Fair. Problem is new. Symptoms have improved. baylee
[2019-07-02 23:43] VITALS: BP 100/63; TEMP 97; O2SAT 98
== END 2019-07-02 23:20 | disposition short-term general hospital (02) ==
LOC: ER 18:27
DX: J36 Peritonsillar abscess (principal); R50.9 Fever, unspecified; R59.0 Localized enlarged lymph nodes; D69.3 Immune thrombocytopenic purpura; D57.3 Sickle-cell trait; Z86.73 Personal history of transient ischemic attack (TIA), and cerebral infarction without residual deficits
CPT/HCPCS: 96365; 87040 ×2; 87088; 85025; 87086; 36415; 81025; 81003; 80053; 70491; 96375; 99285; Q9967; J1100; J2270; J0696; J7030; J2405